=== PATIENT | male | born 1960 ===

== ENCOUNTER 2017-05-23 07:30 | Outpatient (CLI) | payer OTHER, BC ==
[~2017-05-23 07:30] MED LIST: BACLOFEN20 MG
== END 2017-05-23 09:43 | disposition home or self-care (01) ==
LOC: MRI 07:30
DX: M54.5 Low back pain (principal); M54.06 Panniculitis affecting regions of neck and back, lumbar region; M54.05 Panniculitis affecting regions of neck and back, thoracolumbar region
CPT/HCPCS: 72148